=== PATIENT | male | born 1940 | race Caucasian/White ===

== ENCOUNTER 2020-08-23 09:42 | Outpatient (CLI) | payer MEDICARE, OTHER, SELFPAY ==
--- NOTE | ~2020-08-23 | US_ITS ---
US right upper quadrant INDICATION: History of cirrhosis. PROCEDURE: Realtime right upper abdominal ultrasound. COMPARISON: No prior studies for comparison. FINDINGS: The pancreas is normal without focal mass or pancreatic ductal dilation. Liver echotexture is heterogeneous and coarse with mild intrahepatic biliary dilatation. Nodular liver surface. There is normal directional flow in the portal vein. There is a gallbladder polyp with comet tail artifact. Polyp measures 4 mm. No gallstones or gallblad stephanie wall thickening. Common bile duct measures 3 mm. No sonographic Meredith's sign. IMPRESSION: 1: Cirrhosis. 2: 4 mm gallbladder polyp with comet tail artifact. Reviewed, dictated and finalized at location B.
== END 2020-08-23 09:43 | disposition home or self-care (01) ==
DX: K74.60 Unspecified cirrhosis of liver (principal); K82.4 Cholesterolosis of gallbladder
CPT/HCPCS: 76705

== ENCOUNTER 2022-06-24 22:32 | Inpatient (IN) | payer OTHER, SELFPAY ==
--- NOTE | ~2022-06-24 | CT_ITS ---
EXAMINATION: CT abdomen pelvis w con DATE: 06/25/2022 01:06 INDICATION: Nausea and diarrhea. Plaque stools. TECHNIQUE: Computed tomography (CT) of the abdomen and pelvis was performed with 100 mL Omnipaque-300 intravenous contrast. Automated exposure control and iterative reconstruction technique were employe d. The dose-length product was 789.52 mGy-cm. COMPARISON: None FINDINGS: Mild atelectasis/scarring at the lingula. Small calcified nodule in the left lower lobe and calcified paraesophageal lymph nodes consistent with old granulomatous disease. Heart size is normal. Atherosc lerotic coronary artery calcification. Aortic valve calcification. No pericardial effusion. Small sli ding-type hiatal hernia. Shrunken nodular cirrhotic liver. Subcentimeter low-attenuation likely cyst or hemangioma at segment 2 of the liver. Gallbladder, spleen with a couple small splenules, pancreas, bilateral adrenal glands and right kidney are normal. Subcentimeter low-attenuation left renal cyst. Infrarenal aortic stent graft extending into the bilateral common iliac arteries. Bladder is normal. Prostatomegaly. There is moderate scattered colonic diverticulosis without adjacent inflammatory change to suggest diverticul itis. Stool is seen at the cecum and rectum with some intervening fluid in the colon consistent with provided history of diarrhea. A few diverticula are also seen along the distal ileum. No dilated sena l to suggest obstruction. Normal appendix. No free intraperitoneal gas or fluid. No pathologically en larged abdominal or pelvic lymphadenopathy. Lumbar dextroscoliosis with severe spondylosis. IMPRESSION: 1. No acute intra-abdominal/pelvic process. 2. Cirrhosis. 3. Moderate diverticulosis. 4. Small sliding-type hiatal hernia. 5. Prostatomegaly. Reviewed, dictated and finalized at location A.
--- NOTE | ~2022-06-24 | NM_ITS ---
EXAMINATION: NM GI bleeding DATE: 06/27/2022 10:40 INDICATION: Gastrointestinal bleed with melena TECHNIQUE: 27.5 mCi Tc 99m in vitro labeled red cells administered intravenously. Scintigraphic imag es of the abdomen were obtained through 1 hour. FINDINGS: No pattern of abnormal activity is seen in the abdomen or pelvis to suggest gastrointestina l hemorrhage. IMPRESSION: 1. No scintigraphic evidence for active gastrointestinal bleeding. Reviewed, dictated and finalized at location A.
[2022-06-24 22:38] VITALS: BP 160/80; PULSE 84; RESP 18; TEMP 36.5; O2SAT 98
[2022-06-24 22:55] LABS: Basophils Absolute Auto 0.1 K/mm3 (0.0-0.1); Basophils Percent Auto 0.7 % (0.2-1.2); Eosinophils Absolute Auto 0.2 K/mm3 (0-0.3); Eosinophils Percent Auto 1.9 % (0-4.4); Hematocrit 39.2 % (42.0-52.0); Hemoglobin 12.8 g/dL (14.0-18.0); Immature Granulocyte Absolute 0.02 K/mm3 (0.00-0.031); Immature Granulocyte Percent A 0.2 % (0-0.5); Lymphocytes Absolute Auto 1.89 K/mm3 (0.9-3.2); Lymphocytes Percent Auto 21.4 % (18.3-44.2); Mean Corpuscular HGB Conc 32.7 g/dl (32-36); Mean Corpuscular Hemoglobin 31.7 pg (26-34); Mean Platelet Volume 11.3 fl (7.4-10.4); Monocytes Absolute Auto 0.8 K/mm3 (0.1-0.6); Monocytes Percent Auto 8.7 % (2.6-8.5); Neutrophils Absolute Auto 5.9 K/mm3 (1.3-6.7); Neutrophils Percent Auto 67.1 % (45.5-73.1); Platelet Count Result 206 k/mm3 (150-375); Red Blood Count 4.04 M/mm3 (4.6-6.20); Red Cell Distribution Width 13.2 % (11.5-14.5); White Blood Count 8.8 K/mm3 (4.5-10.0)
[2022-06-24 23:04] LABS: Alanine Aminotransferase 23 U/L (6-50); Albumin Level 4.1 g/dL (3.5-5.1); Alkaline Phosphatase 71 U/L (38-126); Anion Gap 12 mmol/L (8-16); Aspartate Amino Transferase 35 U/L (17-59); Bilirubin,Total 0.4 mg/dL (0.2-1.3); Blood Urea Nitrogen 27 mg/dL (9-20); Calcium 8.8 mg/dL (8.4-10.2); Carbon Dioxide 27 mmol/L (22-30); Chloride 101 mmol/L (98-107); Estimated CRCL calculation 36 ml/min; Estimated Glomerular Filt Rate 48; Glucose 133 mg/dL (65-110); Potassium 3.6 mmol/L (3.4-5.0); Sodium 140 mmol/L (137-145)
[2022-06-24 23:06] LABS: INR 1.1; Prothrombin Time 13.7 Seconds (11.1-14.7)
[2022-06-24 23:07] LABS: Partial Thromboplastin Time 28.9 SECONDS (22.3-36.8)
--- NOTE | 2022-06-24 23:57 | ED.GIBLEED ---
HPI - GI Bleed General Chief complaint: GI Bleed Stated complaint: Diarrhea, dark stools Time Seen by Provider: 06/24/22 23:36 Source: patient and RN notes reviewed Mode of arrival: ambulatory Limitations: no limitations History of Present Illness HPI Narrative: This is an 82 year old male with history of hypertension and AAA s/p repair 2014 who presents for evaluation of bloody stools. Patient states on Saturday he felt like he had an upset stomach, and he had a bowel movement. He states when he looked the toilet bowl was red and his stool was dark . He has continued to have bloody bowel movements yesterday and today. He reports having bloody bowel movement just prior to coming to ER. He denies fever, chills, nausea, vomiting, abdominal pain, weakness or dizziness. He denies any coagulation. He states his last colonoscopy was several years ago. Related Data Home Medications Medication Instructions Recorded Confirmed diltiazem HCl 240 mg mg PO 06/24/22 capsule,extended release 24 hr pravastatin 20 mg tablet mg 06/24/22 06/24/22 triamterene 37.5 tablet 06/24/22 mg-hydrochlorothiazide 25 mg tablet ursodiol 500 mg tablet mg 06/24/22 Allergies Allergy/AdvReac Type Severity Reaction Status Date / Time No Known Allergies Allergy Unverified 06/24/22 23:39 Review of Systems Review of Systems: All systems reviewed & are unremarkable except as noted in HPI and below Constitutional: Constitutional: Denies chills, Denies fatigue and Denies fever(s) Cardiovascular: Cardiovascular: Denies chest pain and Denies radiating jaw, neck or arm pain Respiratory: Respiratory: Denies chest congestion and Denies cough Gastrointestinal: Gastrointestinal: Denies abdominal pain, Reports diarrhea, Denies nausea and Denies vomiting Genitourinary: Genitourinary: Denies hematuria [facility] Past Medical History Medical History (Updated 06/25/22 @ 03:42 by Jayne Marcos MD) AAA (abdominal aortic aneurysm) Hypertension Surgical History Surgical History (Updated 06/25/22 @ 00:08 by Jayne Marcos MD) H/O abdominal aortic aneurysm repair Social History Social History (Updated 06/25/22 @ 00:08 by Jayne Marcos MD) Smoking status: Never smoker Exam Const: General: no acute distress and alert Nutritional Appearance: well nourished Orientation/consciousness: patient oriented x3 HENMT: Head: normal to inspection Eyes: EOM: EOMs intact bilaterally Chest: Chest palpation & inspection: normal inspection of the chest Resp: Effort & Inspection: normal respiratory effort Auscultation: clear to auscultation bilaterally Cardio: Rate: regular rate Rhythm: regular rhythm Heart sounds: no murmurs GI: GI Palp: Yes Soft to palpation, No Tenderness to palpation present (GI), No Guarding due to palpation present (GI) and No Rigid due to palpation Auscultation: normal bowel sounds Rectal Exam: heme positive stool Skin: General skin exam: normal color Rashes: no rashes Neuro: General: patient oriented x3, moves all extremities and CN's II-XI intact bilaterally Extrem: General: normal to inspection Psych: Mental Status: mental status grossly normal Affect: normal affect Attitude: cooperative Course Reevaluation(s) Reevaluation #1: Dr. Ballard accepts patient to hospitalist service. I Discussed CT results. She recommends starting on antibiotics to cover colitis. PAtient and family understand that he will be admitted. Date: 06/25/22 Time: 02:30 Vital Signs Vital signs: Vital Signs Temperature 97.7 F 06/24/22 22:38 Pulse Rate 84 06/24/22 22:38 Respiratory Rate 18 06/24/22 22:38 Blood Pressure 160/80 H 06/24/22 22:38 Pulse Oximetry 98 06/24/22 22:38 Oxygen Delivery Room Air 06/24/22 22:38 Temperature 97.7 F 06/24/22 22:38 Pulse Rate 69 06/25/22 01:19 Respiratory Rate 18 06/25/22 01:19 Blood Pressure 127/60 06/25/22 01:19 Pulse Oximetry 100 06/25/22 01:19
[2022-06-25] VITALS (7 sets, daily range): BP systolic 122–152; BP diastolic 57–72; PULSE 67–97; RESP 16–20; TEMP 35.8–36.4; O2SAT 98–100; BMI 28.9
[2022-06-25] MEDS: SODIUM CHLORIDE 0.9% IV 1,000 ML 999 ML IV CONT (01:18)
[2022-06-25] MEDS: SODIUM CHLORIDE 0.9% IV 1,000 ML 75 ML IV CONT ×2 (04:15→18:00)
[2022-06-25 05:56] LABS: Hematocrit 34.7 % (42.0-52.0); Hemoglobin 11.2 g/dL (14.0-18.0)
[2022-06-25] MEDS: PANTOPRAZOLE SODIUM IV 40 MG VIAL IV PUSH ×2 (08:03→20:45)
[2022-06-25 09:24] LABS: Hematocrit 33.1 % (42.0-52.0); Hemoglobin 10.7 g/dL (14.0-18.0)
--- NOTE | 2022-06-25 09:30 | PM.IMHP ---
H&P: HPI History of Present Illness Date/Time: 06/25/22 09:30 Chief Complaint: Melena Narrative: Patient is an 82 year old male with a past medical history of HTN. Cirrhosis, HLD, afib who presented to the ED with complaints of blood stools for the last 2 days. He stated that he noticed some changes over the last few days prior to saturday however, he stated that it was not as big. He stated that he went to play golf yesterday, and after his game he had a very large BM that was purple and bring red. He stated that it was pretty significant amount, which is why he came to be checked out. He stated that since that he has been experiencing a lot of gas and dull abdominal pain. He denies dizziness, lightheadedness, weakness, or syncope. He denies any nausea or vomiting. He states that he is doing good on his feet. He denies having any pain or swelling. he then told me that he was having more episodes and when he does have a bowel movement that it is bloody. He also stated drinks of water and small things like medicines are also making have diarrhea as well. Abdominal CT does show enterocolitis. It also shows watery stool in the colon. H&H stable at this time 11.2/34.1. Renal function seems a little elevated however I do not have a baseline at this time. Vital signs remained stable at this time patient is being admitted to the hospital service under observation at this time. Review of Systems Review of Systems: All systems reviewed & are unremarkable except as noted in HPI and below PMFSH Past Medical History Medical History (Updated 06/25/22 @ 12:07 by DANI Tavarez) AAA (abdominal aortic aneurysm) Afib Cirrhosis Hyperlipidemia Hypertension Surgical History Surgical History (Updated 06/25/22 @ 00:08 by Jayne Marcos MD) H/O abdominal aortic aneurysm repair Family History Family History Mother Alzheimer disease Father CKD (chronic kidney disease) Cirrhosis Grandparent Acute myocardial infarction Black lung disease Social History Social History Social History: Patient lives with his daughter Andra who will be his surrogate. He has 1 dog which is a pulmonary Grace. He was however she which sounds like a bunch of issues happened that time. He wishes to be a full code at this time. 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 Gender identity (if verbalized by the patient): Male Sexual Orientation (if Verbalized by the Patient): Straight or Heterosexual Spiritual care concerns: No Agree to blood products: Yes Meds Home Medications and Allergies Home Medications Medication Instructions Recorded Confirmed Type diltiazem HCl 240 mg 240 mg PO DAILY 06/24/22 06/25/22 History capsule,extended release 24 hr pravastatin 20 mg tablet 20 mg PO DAILY 06/24/22 06/25/22 History triamterene 37.5 1 tablet PO DAILY 06/24/22 06/25/22 History mg-hydrochlorothiazide 25 mg tablet ursodiol 500 mg tablet 500 mg PO BID 06/24/22 06/25/22 History Allergies Allergy/AdvReac Type Severity Reaction Status Date / Time No Known Allergies Allergy Unverified 06/24/22 23:39 Vital Signs Vital Signs - 24 hr 06/24/22 22:38 06/25/22 01:19 06/25/22 03:38 Temperature 97.7 F Pulse Rate 84 69 67 Respiratory Rate 18 18 20 Blood Pressure 160/80 H 127/60 122/72 Pulse Oximetry 98 100 98 Oxygen Delivery Room Air 06/25/22 04:33 06/25/22 04:33 06/25/22 04:35 Temperature 97.6 F Pulse Rate 97 Respiratory Rate 16 Blood Pressure
--- NOTE | 2022-06-25 14:51 | WPDGICN ---
Assessment and Plan Assessment and plan (1) Hematochezia: Code(s): K92.1 - Melena Status: Acute Assessment and Plan: will assess with colonoscopy ? diverticular bleed, avm, etc no much of abdominal pain and he is comfortable (2) GI bleed: Code(s): K92.2 - Gastrointestinal hemorrhage, unspecified Status: Acute Assessment and Plan: monitor (3) Cirrhosis: Code(s): K74.60 - Unspecified cirrhosis of liver Status: Acute Assessment and Plan: ? etiology normal liver enzymes will get hepatitis panel (4) MARIELOS (acute kidney injury): Code(s): N17.9 - Acute kidney failure, unspecified Status: Acute Assessment and Plan: monitor, no old records to compare GI Consult Note Consult date/time: 06/25/22 14:51 Reason for consult: hematochezia HPI: Reji Alcala is a 82 year old male past medical history of HTN, cirrhosis, HLD, afib who came to the ED with new onset of blood stools for the last 2 days, also had lot of gas, dull abdominal pain with diarrhea. No fever or chills, no sick contact, no melena or nausea. Last colonoscopy ~ 8 years ago. Denies syncope or lightheadedness. CT scan reviewed and showed cirrhosis, diverticulosis, small hiatal hernia.?Hb 12 and down to 10, creatinine 1.4, liver enzymes normal. Review of Systems Review of Systems: All systems reviewed & are unremarkable except as noted in HPI and below Constitutional: Constitutional: Denies chills, Denies fatigue and Denies fever(s) Eyes: Eyes: Denies blurry vision ENT: Reports Normal hearing present Cardiovascular: Cardiovascular: Denies chest pain and Denies radiating jaw, neck or arm pain Respiratory: Respiratory: Denies chest congestion and Denies cough Gastrointestinal: Gastrointestinal: Denies abdominal pain, Reports diarrhea, Denies nausea and Denies vomiting Genitourinary: Genitourinary: Denies hematuria Musculoskeletal: Musculoskeletal: Denies back pain Integumentary/Breasts: Skin/Breast: Denies rash Neurologic: Denies Abnormal speech present [facility] Past Medical History Medical History (Updated 06/25/22 @ 12:07 by ELEAZAR TavarezN-C) AAA (abdominal aortic aneurysm) Afib Cirrhosis Hyperlipidemia Hypertension Surgical History Surgical History (Updated 06/25/22 @ 00:08 by Jayne Marcos MD) H/O abdominal aortic aneurysm repair Family History Family History Mother Alzheimer disease Father CKD (chronic kidney disease) Cirrhosis Grandparent Acute myocardial infarction Black lung disease Social History Social History Social History: Patient lives with his daughter Andra who will be his surrogate. He has 1 dog which is a pulmonary Grace. He was however she which sounds like a bunch of issues happened that time. He wishes to be a full code at this time. 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
[2022-06-25 15:22] LABS: Hematocrit 31.9 % (42.0-52.0); Hemoglobin 10.4 g/dL (14.0-18.0)
[2022-06-25] MEDS: BISACODYL 5 MG TABLET EC 20 MG PO (17:57)
[2022-06-25] MEDS: polyethylene glycoL 3350 238 GM BOTTLE PO (17:57)
[2022-06-25 21:06] LABS: Hematocrit 30.8 % (42.0-52.0)
[2022-06-26] VITALS (8 sets, daily range): BP systolic 95–156; BP diastolic 36–70; PULSE 70–85; RESP 1–24; TEMP 36.1–36.4; O2SAT 97–100
[2022-06-26 06:06] LABS: Basophils Percent Auto 0.4 % (0.2-1.2); Eosinophils Absolute Auto 0.1 K/mm3 (0-0.3); Eosinophils Percent Auto 0.7 % (0-4.4); Hematocrit 27.3 % (42.0-52.0); Hemoglobin 8.8 g/dL (14.0-18.0); Immature Granulocyte Absolute 0.03 K/mm3 (0.00-0.031); Immature Granulocyte Percent A 0.4 % (0-0.5); Lymphocytes Absolute Auto 1.37 K/mm3 (0.9-3.2); Lymphocytes Percent Auto 18.7 % (18.3-44.2); Mean Corpuscular HGB Conc 32.2 g/dl (32-36); Mean Corpuscular Hemoglobin 31.8 pg (26-34); Mean Corpuscular Volume 98.6 fl (80-100); Monocytes Absolute Auto 0.5 K/mm3 (0.1-0.6); Monocytes Percent Auto 6.9 % (2.6-8.5); Neutrophils Absolute Auto 5.4 K/mm3 (1.3-6.7); Neutrophils Percent Auto 72.9 % (45.5-73.1); Platelet Count Result 171 k/mm3 (150-375); Red Blood Count 2.77 M/mm3 (4.6-6.20); Red Cell Distribution Width 13.2 % (11.5-14.5); White Blood Count 7.3 K/mm3 (4.5-10.0)
[2022-06-26 06:21] LABS: Transferrin 137 mg/dL (206-381)
[2022-06-26 06:55] LABS: Hepatitis B Surface Antigen Negative (Negative)
[2022-06-26 07:01] LABS: HAV RESULT Negative (Negative); Hepatitis B Core IgM Result Negative (Negative)
[2022-06-26 07:12] LABS: Hepatitis C Virus Antibody Negative (Negative)
[2022-06-26 07:17] LABS: Alanine Aminotransferase 17 U/L (6-50); Albumin Level 2.9 g/dL (3.5-5.1); Alkaline Phosphatase 55 U/L (38-126); Anion Gap 5 mmol/L (8-16); Aspartate Amino Transferase 39 U/L (17-59); Bilirubin,Total 0.4 mg/dL (0.2-1.3); Blood Urea Nitrogen 12 mg/dL (9-20); Calcium 7.4 mg/dL (8.4-10.2); Carbon Dioxide 28 mmol/L (22-30); Chloride 107 mmol/L (98-107); Estimated CRCL calculation 50 ml/min; Estimated Glomerular Filt Rate > 60; Glucose 119 mg/dL (65-110); Magnesium 1.5 mg/dL (1.6-2.3); Potassium 3.3 mmol/L (3.4-5.0); Sodium 140 mmol/L (137-145)
[2022-06-26] MEDS: SODIUM CHLORIDE 0.9% IV 1,000 ML 75 ML IV CONT (08:20)
[2022-06-26] MEDS: PANTOPRAZOLE SODIUM IV 40 MG VIAL IV PUSH ×2 (08:22→20:21)
[2022-06-26] MEDS: LACTATED RINGERS 1,000 ML 150 ML IV CONT (08:45)
--- NOTE | 2022-06-26 09:08 | WPDANESEPPF ---
Anes - Initial Pre Proc Eval Procedure: Operation Date: 06/26/22 11:15 Proposed Procedures p Colonoscopy - Alexey Patricio MD Date/Time: 06/26/22 09:08 Surgeon: Meagan Ballard DO Pre Op Diagnosis: Bloody Stools, Anemia Patient Data Age: 82 Gender: M Height: 1.78 m Weight: 91.5 kg Last Vital Signs Temp 96.9 F L 06/26/22 08:40 Pulse 81 06/26/22 08:40 Resp 18 06/26/22 08:40 BP 156/68 H 06/26/22 08:40 Pulse Ox 100 06/26/22 08:40 O2 Del Method Room Air 06/26/22 08:40 Allergies Allergy/AdvReac Type Severity Reaction Status Date / Time No Known Allergies Allergy Verified 06/26/22 08:49 Home Medications Medication Instructions Recorded Confirmed Type diltiazem HCl 240 mg 240 mg PO DAILY 06/24/22 06/25/22 History capsule,extended release 24 hr pravastatin 20 mg tablet 20 mg PO DAILY 06/24/22 06/25/22 History triamterene 37.5 1 tablet PO DAILY 06/24/22 06/25/22 History mg-hydrochlorothiazide 25 mg tablet ursodiol 500 mg tablet 500 mg PO BID 06/24/22 06/25/22 History Laboratory Tests 06/25/22 06/25/22 06/25/22 09:14 15:08 20:55 WBC RBC Hgb 10.7 g/dL L g/dL 10.4 g/dL L g/dL 10.0 g/dL L g/dL (14.0-18.0) (14.0-18.0) (14.0-18.0) Hct 33.1 % L % 31.9 % L % 30.8 % L % (42.0-52.0) (42.0-52.0) (42.0-52.0) MCV MCH MCHC RDW Plt Count MPV Immature Gran % (Auto) Neut % (Auto) Lymph % (Auto) [place] % (Auto) Eos % (Auto) Baso % (Auto) Lymph # (Auto) [place] # (Auto) Eos # (Auto) Baso # (Auto) Abs Immat Gran (auto) Absolute Neuts (auto) Absolute Nucleated RBC Nucleated RBC % Sodium Potassium Chloride Carbon Dioxide Anion Gap BUN Creatinine Estim Creat Clear Calc Estimated GFR Glucose Calcium Magnesium Iron TIBC % Saturation Transferrin Ferritin Total Bilirubin AST ALT Alkaline Phosphatase Total Protein Albumin Vitamin B12 Folate Hepatitis A IgM Ab Hep Bs Antigen Hep B Core IgM Ab Hepatitis C Ab Screen 06/26/22 06/26/22 06/26/22 05:11 05:11 05:11 WBC 7.3 K/mm3 K/mm3 (4.5-10.0) RBC 2.77 M/mm3 L M/mm3 (4.6-6.20) Hgb 8.8 g/dL L g/dL (14.0-18.0) Hct 27.3 % L % (42.0-52.0) MCV 98.6 fl fl (80-100) MCH 31.8 pg pg (26-34) MCHC 32.2 g/dl g/dl (32-36) RDW 13.2 % % (11.5-14.5) Plt Count 171 k/mm3 k/mm3 (150-375) MPV 12.0 fl H fl (7.4-10.4) Immature Gran % (Auto) 0.4 % % (0-0.5) Neut % (Auto) 72.9 % % (45.5-73.1) Lymph % (Auto) 18.7 % % (18.3-44.2) [place] % (Auto) 6.9 % % (2.6-8.5) Eos % (Auto) 0.7 % % (0-4.4) Baso % (Auto) 0.4 % % (0.2-1.2) Lymph # (Auto) 1.37 K/mm3 K/mm3 (0.9-3.2) [place] # (Auto) 0.5 K/mm3 K/mm3 (0.1-0.6) Eos # (Auto) 0.1 K/mm3 K/mm3 (0-0.3) Baso # (Auto) 0.0 K/mm3 K/mm3 (0.0-0.1) Abs Immat Gran (auto) 0.03 K/mm3 K/mm3 (0.00-0.031) Absolute Neuts (auto) 5.4 K/mm3 K/mm3 (1.3-6.7) Absolute Nucleated RBC 0.0 K/mm3 K/mm3 (0.0-0.012) Nucleated RBC % 0.0 % % (0.0-0.2) Sodium 140 mmol/L mmol/L (137-145) Potassium 3.3 mmol/L L mmol/L (3.4-5.0) Chloride 107 mmol/L mmol/L (98-107) Carbon Dioxide 28 mmol/L mmol/L
--- NOTE | 2022-06-26 10:03 | SUR.OPER ---
EGD start 937 end 940, Colon start 947 end 1016.
[2022-06-26 10:57] LABS: Iron 28 ug/dL (49-181)
[2022-06-26 11:08] LABS: Percent Iron Saturation 13 % (20-50)
--- NOTE | 2022-06-26 12:40 | PM.IMPN ---
Progress Note: A&P Assessment and Plan (1) Hematochezia: Code(s): K92.1 - Melena Status: Acute Assessment and Plan: Complaints of melena for the last 2 days Describes dark stools with bright red blood Protonix 40mg IV BID H/H trending down, 8.8/27.3 continue Q6H H/H Anemia labs iron 28, TIBC 221, % sat 13, transferrin 137, Ferritin 44.20, B12 , Folate Start iron 324mg PO BID Trend labs Transfuse as indicated GI consult Low fiber diet EGD and Colonoscopy do not indicate any bleeding, however, the picture appear to have bloody like stool (2) Enterocolitis: Code(s): K52.9 - Noninfective gastroenteritis and colitis, unspecified Status: Acute Assessment and Plan: CT indicates colitis and esophagitis Zosyn started at this time WBC is normal 7.3 Blood cultures not obtained Continue antibiotics for now trend labs (3) Anemia: Code(s): D64.9 - Anemia, unspecified Status: Acute Assessment and Plan: H/H trending down currently 8.8/27.3 Transfuse if Hgb less than 7 Anemia labs iron 28, TIBC 221, % sat 13, transferrin 137, Ferritin 44.20, B12 , Folate GI consulted thank you for your help Supplement as indicated Looks to be acute blood loss anemia (4) GI bleed: Code(s): K92.2 - Gastrointestinal hemorrhage, unspecified Status: Acute Assessment and Plan: See above GI consulted (5) Hypertension: Code(s): I10 - Essential (primary) hypertension Status: Acute Assessment and Plan: Current BP is 129/70 Hold HCTZ and Triamterene due to renal function Trend BP Adjust therapy as indicated (6) Hyperlipidemia: Code(s): E78.5 - Hyperlipidemia, unspecified Status: Acute Assessment and Plan: Hold pravastatin while NPO (7) Cirrhosis: Code(s): K74.60 - Unspecified cirrhosis of liver Status: Acute Assessment and Plan: CT indicated cirrhosis Hold ursodiol while NPO Trend liver enzymes (8) MARIELOS (acute kidney injury): Code(s): N17.9 - Acute kidney failure, unspecified Status: Acute Assessment and Plan: BUN/Cr 12/1.00 Unknown baseline Continue to trend labs Trend urine output Could be from the acute blood loss. Time Spent With Patient Time with patient: Greater than 35 minutes Subjective Date/time seen: 06/26/22 1240 Interval history: 06/26/221239 Patient stated that he feels well. He denied having any further bleeding. He denies any chest pain, shortness of breath, nausea, vomiting, diarrhea, constipation, weakness or fatigue. He is ready to go but not convinced that the bleeding has stopped. Looking at the colonoscopy the fluid looks to be a blood type of fluid. Put a call out to general surgery to review the pictures from the colonoscopy. 06/25/22? 09:30 Patient is an 82 year old male with a past medical history of HTN. Cirrhosis, HLD, afib who presented to the ED with complaints of blood stools for the last 2 days.? He stated that he noticed some changes over the last few days prior to saturday however, he stated that it was not as big.? He stated that he went to play golf yesterday, and after his game he had a very large BM that was purple and bring red.? He stated that it was pretty significant amount, which is why he came to be checked out.? He stated that since that he has been experiencing a lot of gas and dull abdominal pain.? He denies dizziness, lightheadedness, weakness, or syncope.? ? He denies any nausea or vomiting.? He states that he is doing good on his feet.? He denies having any pain or swelling. he then told me that he was having more episodes and when he does have a bowel movement that it is bloody.? He also stated drinks of water and small things like medicines are also making have diarrhea as well.? Abdominal CT d
--- NOTE | 2022-06-26 12:40 | P.PNIM_ITS ---
Progress Note: A&P Assessment and Plan (1) Hematochezia: Code(s): K92.1 - Melena Status: Acute Assessment and Plan: * Complaints of melena for the last 2 days * Describes dark stools with bright red blood * Protonix 40mg IV BID * H/H trending down, 8.8/27.3 * continue Q6H H/H * Anemia labs iron 28, TIBC 221, % sat 13, transferrin 137, Ferritin 44.20, B12 , Folate * Start iron 324mg PO BID * Trend labs * Transfuse as indicated * GI consult * Low fiber diet * EGD and Colonoscopy do not indicate any bleeding, however, the picture appear to have bloody like stool (2) Enterocolitis: Code(s): K52.9 - Noninfective gastroenteritis and colitis, unspecified Status: Acute Assessment and Plan: * CT indicates colitis and esophagitis * Zosyn started at this time * WBC is normal 7.3 * Blood cultures not obtained * Continue antibiotics for now * trend labs (3) Anemia: Code(s): D64.9 - Anemia, unspecified Status: Acute Assessment and Plan: * H/H trending down currently 8.8/27.3 * Transfuse if Hgb less than 7 * Anemia labs iron 28, TIBC 221, % sat 13, transferrin 137, Ferritin 44.20, B12 , Folate * GI consulted thank you for your help * Supplement as indicated * Looks to be acute blood loss anemia (4) GI bleed: Code(s): K92.2 - Gastrointestinal hemorrhage, unspecified Status: Acute Assessment and Plan: * See above * GI consulted (5) Hypertension: Code(s): I10 - Essential (primary) hypertension Status: Acute Assessment and Plan: * Current BP is 129/70 * Hold HCTZ and Triamterene due to renal function * Trend BP * Adjust therapy as indicated (6) Hyperlipidemia: Code(s): E78.5 - Hyperlipidemia, unspecified Status: Acute Assessment and Plan: * Hold pravastatin while NPO (7) Cirrhosis: Code(s): K74.60 - Unspecified cirrhosis of liver Status: Acute Assessment and Plan: * CT indicated cirrhosis * Hold ursodiol while NPO * Trend liver enzymes (8) MARIELOS (acute kidney injury): Code(s): N17.9 - Acute kidney failure, unspecified Status: Acute Assessment and Plan: * BUN/Cr 10/04.00 * Unknown baseline * Continue to trend labs * Trend urine output * Could be from the acute blood loss. Time Spent With Patient Time with patient: Greater than 35 minutes Subjective Date/time seen: 06/26/22 1240 Interval history: 06/26/221239 Patient stated that he feels well. He denied having any further bleeding. He denies any chest pain, shortness of breath, nausea, vomiting, diarrhea, constipation, weakness or fatigue. He is ready to go but not convinced that the bleeding has stopped. Looking at the colonoscopy the fluid looks to be a blood type of fluid. Put a call out to general surgery to review the pictures from the colonoscopy. 06/25/22? 09:30 Patient is an 82 year old male with a past medical history of HTN. Cirrhosis, HLD, afib who presented to the ED with complaints of blood stools for the last 2 days.? He stated that he noticed some changes over the last few days prior to saturday however, he stated that it was not as big.? He stated that he went to play golf yesterday, an
[2022-06-26] MEDS: MAGNESIUM SULF 4 GM/WATER100ML 4 GM/100 ML BAG IVPB (13:53)
[2022-06-26 16:08] LABS: Folic Acid > 20.0 ng/mL (2.76->20)
[2022-06-26 16:32] LABS: Hematocrit 24.8 % (42.0-52.0); Hemoglobin 7.9 g/dL (14.0-18.0)
[2022-06-26] MEDS: FERROUS SULFATE 324 MG TABLET PO (17:51)
[2022-06-26 21:45] LABS: Hematocrit 24.4 % (42.0-52.0); Hemoglobin 7.8 g/dL (14.0-18.0)
[2022-06-27] VITALS (7 sets, daily range): BP systolic 107–134; BP diastolic 41–59; PULSE 54–82; RESP 16–20; TEMP 36.2–36.9; O2SAT 91–100
[2022-06-27] MEDS: SODIUM CHLORIDE 0.9% IV 1,000 ML 75 ML IV CONT ×2 (01:13→21:29)
[2022-06-27 04:39] LABS: Hematocrit 23.4 % (42.0-52.0); Hemoglobin 7.5 g/dL (14.0-18.0)
[2022-06-27 07:07] LABS: Basophils Percent Auto 0.6 % (0.2-1.2); Eosinophils Absolute Auto 0.2 K/mm3 (0-0.3); Eosinophils Percent Auto 3.5 % (0-4.4); Hematocrit 23.5 % (42.0-52.0); Hemoglobin 7.6 g/dL (14.0-18.0); Immature Granulocyte Absolute 0.02 K/mm3 (0.00-0.031); Immature Granulocyte Percent A 0.3 % (0-0.5); Lymphocytes Absolute Auto 1.87 K/mm3 (0.9-3.2); Lymphocytes Percent Auto 28.5 % (18.3-44.2); Mean Corpuscular HGB Conc 32.3 g/dl (32-36); Mean Corpuscular Hemoglobin 31.9 pg (26-34); Mean Corpuscular Volume 98.7 fl (80-100); Mean Platelet Volume 12.2 fl (7.4-10.4); Monocytes Absolute Auto 0.6 K/mm3 (0.1-0.6); Monocytes Percent Auto 8.7 % (2.6-8.5); Neutrophils Absolute Auto 3.8 K/mm3 (1.3-6.7); Neutrophils Percent Auto 58.4 % (45.5-73.1); Platelet Count Result 178 k/mm3 (150-375); Red Blood Count 2.38 M/mm3 (4.6-6.20); Red Cell Distribution Width 13.5 % (11.5-14.5); White Blood Count 6.6 K/mm3 (4.5-10.0)
[2022-06-27 07:19] LABS: Alanine Aminotransferase 17 U/L (6-50); Albumin Level 2.7 g/dL (3.5-5.1); Alkaline Phosphatase 53 U/L (38-126); Anion Gap 4 mmol/L (8-16); Aspartate Amino Transferase 52 U/L (17-59); Bilirubin,Total 0.3 mg/dL (0.2-1.3); Blood Urea Nitrogen 8 mg/dL (9-20); Calcium 7.1 mg/dL (8.4-10.2); Carbon Dioxide 26 mmol/L (22-30); Chloride 109 mmol/L (98-107); Estimated CRCL calculation 50 ml/min; Estimated Glomerular Filt Rate > 60; Glucose 111 mg/dL (65-110); Potassium 3.1 mmol/L (3.4-5.0); Sodium 139 mmol/L (137-145)
--- NOTE | 2022-06-27 08:31 | WPDANESPN ---
Anes - Prog Note Post-Op Date/Time: 06/27/22 08:31 Cardiovascular status: normal Respiratory status: normal Airway patency: baseline Mental status: baseline Post-Op hydration status: normal Vital Signs: Last Vital Signs Temp 36.4 C 06/27/22 04:10 Pulse 82 06/27/22 04:10 Resp 20 06/27/22 04:10 BP 132/59 L 06/27/22 04:10 Pulse Ox 98 06/27/22 04:10 O2 Del Method Room Air 06/26/22 20:00 Pain Score (VAS): 1 I/O: Intake & Output 06/26/22 06/27/22 06/27/22 23:59 07:59 15:59 Intake Total 1665 240 Balance 1665 240 Laboratory Tests 06/27/22 04:34 06/27/22 04:33 06/26/22 06/26/22 06/26/22 05:11 05:11 16:12 WBC RBC Hgb 7.9 L Hct 24.8 L MCV MCH MCHC RDW Plt Count MPV Immature Gran % (Auto) Neut % (Auto) Lymph % (Auto) [place] % (Auto) Eos % (Auto) Baso % (Auto) Lymph # (Auto) [place] # (Auto) Eos # (Auto) Baso # (Auto) Abs Immat Gran (auto) Absolute Neuts (auto) Absolute Nucleated RBC Nucleated RBC % Sodium Potassium Chloride Carbon Dioxide Anion Gap BUN Creatinine Estim Creat Clear Calc Estimated GFR Glucose Calcium Iron 28 L TIBC 221 L % Saturation 13 L Ferritin 44.20 Total Bilirubin AST ALT Alkaline Phosphatase Total Protein Albumin Vitamin B12 287.0 Folate > 20.0 H 06/26/22 06/27/22 06/27/22 21:29 04:33 04:33 WBC 6.6 RBC 2.38 L Hgb 7.8 L 7.6 L Hct 24.4 L 23.5 L MCV 98.7 MCH 31.9 MCHC 32.3 RDW 13.5 Plt Count 178 MPV 12.2 H Immature Gran % (Auto) 0.3 Neut % (Auto) 58.4 Lymph % (Auto) 28.5 [place] % (Auto) 8.7 H Eos % (Auto) 3.5 Baso % (Auto) 0.6 Lymph # (Auto) 1.87 [place] # (Auto) 0.6 Eos # (Auto) 0.2 Baso # (Auto) 0.0 Abs Immat Gran (auto) 0.02 Absolute Neuts (auto) 3.8 Absolute Nucleated RBC 0.0 Nucleated RBC % 0.0 Sodium 139 Potassium 3.1 L Chloride 109 H Carbon Dioxide 26 Anion Gap 4 L BUN 8 L Creatinine 1.00 Estim Creat Clear Calc 50 Estimated GFR > 60 Glucose 111 H Calcium 7.1 L Iron TIBC % Saturation Ferritin Total Bilirubin 0.3 AST 52 ALT 17 Alkaline Phosphatase 53 Total Protein 5.0 L Albumin 2.7 L Vitamin B12 Folate 06/27/22 04:34 WBC RBC Hgb 7.5 L Hct 23.4 L MCV MCH MCHC RDW Plt Count MPV Immature Gran % (Auto) Neut % (Auto) Lymph % (Auto) [place] % (Auto) Eos % (Auto) Baso % (Auto) Lymph # (Auto) [place] # (Auto) Eos # (Auto) Baso # (Auto) Abs Immat Gran (auto) Absolute Neuts (auto) Absolute Nucleated RBC Nucleated RBC % Sodium Potassium Chloride Carbon Dioxide Anion Gap BUN Creatinine Estim Creat Clear Calc Estimated GFR Glucose Calcium Iron TIBC % Saturation Ferritin Total Bilirubin AST ALT Alkaline Phosphatase Total Protein Albumin Vitamin B12 Folate Patient Feedback: Patient satisfied with anesthetic care.
[2022-06-27] MEDS: PANTOPRAZOLE SODIUM IV 40 MG VIAL IV PUSH ×2 (10:16→20:24)
[2022-06-27] MEDS: FERROUS SULFATE 324 MG TABLET PO ×2 (10:17→16:46)
--- NOTE | 2022-06-27 11:15 | P.PNIM_ITS ---
Progress Note: A&P Assessment and Plan (1) Hematochezia: Code(s): K92.1 - Melena Status: Acute Assessment and Plan: * Complaints of melena for the last 2 days * Describes dark stools with bright red blood * Protonix 40mg IV BID * H/H trending down, 8.8/27.3 * continue Q6H H/H * Anemia labs iron 28, TIBC 221, % sat 13, transferrin 137, Ferritin 44.20, B12 , Folate * Start iron 324mg PO BID * Trend labs * Transfuse as indicated * GI consult * Low fiber diet * EGD and Colonoscopy do not indicate any bleeding, however, the picture appear to have bloody like stool * Talked with Dr. Gutierrez who stated that this is coming from a diverticulum * General surgery consulted * NM tag red blood cell did not show any active bleed (2) Enterocolitis: Code(s): K52.9 - Noninfective gastroenteritis and colitis, unspecified Status: Acute Assessment and Plan: * CT indicates colitis and esophagitis * Zosyn started at this time * WBC is normal 6.6 * Blood cultures not obtained * Continue antibiotics for now * trend labs (3) Anemia: Code(s): D64.9 - Anemia, unspecified Status: Acute Assessment and Plan: * H/H trending down currently 7.5/23.4 * Transfuse if Hgb less than 7 * Anemia labs? iron 28, TIBC 221, % sat 13, transferrin 137, Ferritin 44.20, B12 , Folate * GI consulted thank you for your help * Supplement as indicated * Looks to be acute blood loss anemia * Transfuse one unit of PRBC (4) GI bleed: Code(s): K92.2 - Gastrointestinal hemorrhage, unspecified Status: Acute Assessment and Plan: * See above * GI consulted * General surgery consulted (5) Hypertension: Code(s): I10 - Essential (primary) hypertension Status: Acute Assessment and Plan: * Current BP is 129/70 * Hold HCTZ and Triamterene due to renal function * Trend BP * Adjust therapy as indicated (6) Hyperlipidemia: Code(s): E78.5 - Hyperlipidemia, unspecified Status: Acute Assessment and Plan: * Hold pravastatin for now (7) Cirrhosis: Code(s): K74.60 - Unspecified cirrhosis of liver Status: Acute Assessment and Plan: * CT indicated cirrhosis * Hold ursodiol while NPO * Trend liver enzymes (8) MARIELOS (acute kidney injury): Code(s): N17.9 - Acute kidney failure, unspecified Status: Acute Assessment and Plan: * BUN/Cr 8/1.00 * Unknown baseline * Continue to trend labs * Trend urine output * Could be from the acute blood loss. Time Spent With Patient Time: Family conversation included update of care, plan of care Time with patient: Greater than 35 minutes Subjective Date/time seen: 06/27/22 11:15 Interval history: 06/27/22 1115 Patient was sitting in the chair. Patient does look a little pallor today. He denies any on comfort. He did denies any nausea, vomiting, diarrhea, constipation, weakness or fatigue. He did state that he had a couple of bowel movements that have been to him bloody. I asked him if I could see it the next time he did have a bowel movement is bright thang red blood. I talked to Dr. Gutierrez who say did that it is bleeding from a diverticulum any does not know which 1 because it
--- NOTE | 2022-06-27 11:15 | PM.IMPN ---
Progress Note: A&P Assessment and Plan (1) Hematochezia: Code(s): K92.1 - Melena Status: Acute Assessment and Plan: Complaints of melena for the last 2 days Describes dark stools with bright red blood Protonix 40mg IV BID H/H trending down, 8.8/27.3 continue Q6H H/H Anemia labs iron 28, TIBC 221, % sat 13, transferrin 137, Ferritin 44.20, B12 , Folate Start iron 324mg PO BID Trend labs Transfuse as indicated GI consult Low fiber diet EGD and Colonoscopy do not indicate any bleeding, however, the picture appear to have bloody like stool Talked with Dr. Gutierrez who stated that this is coming from a diverticulum General surgery consulted NM tag red blood cell did not show any active bleed (2) Enterocolitis: Code(s): K52.9 - Noninfective gastroenteritis and colitis, unspecified Status: Acute Assessment and Plan: CT indicates colitis and esophagitis Zosyn started at this time WBC is normal 6.6 Blood cultures not obtained Continue antibiotics for now trend labs (3) Anemia: Code(s): D64.9 - Anemia, unspecified Status: Acute Assessment and Plan: H/H trending down currently 7.5/23.4 Transfuse if Hgb less than 7 Anemia labs? iron 28, TIBC 221, % sat 13, transferrin 137, Ferritin 44.20, B12 , Folate GI consulted thank you for your help Supplement as indicated Looks to be acute blood loss anemia Transfuse one unit of PRBC (4) GI bleed: Code(s): K92.2 - Gastrointestinal hemorrhage, unspecified Status: Acute Assessment and Plan: See above GI consulted General surgery consulted (5) Hypertension: Code(s): I10 - Essential (primary) hypertension Status: Acute Assessment and Plan: Current BP is 129/70 Hold HCTZ and Triamterene due to renal function Trend BP Adjust therapy as indicated (6) Hyperlipidemia: Code(s): E78.5 - Hyperlipidemia, unspecified Status: Acute Assessment and Plan: Hold pravastatin for now (7) Cirrhosis: Code(s): K74.60 - Unspecified cirrhosis of liver Status: Acute Assessment and Plan: CT indicated cirrhosis Hold ursodiol while NPO Trend liver enzymes (8) MARIELOS (acute kidney injury): Code(s): N17.9 - Acute kidney failure, unspecified Status: Acute Assessment and Plan: BUN/Cr 8.00 Unknown baseline Continue to trend labs Trend urine output Could be from the acute blood loss. Time Spent With Patient Time: Family conversation included update of care, plan of care Time with patient: Greater than 35 minutes Subjective Date/time seen: 06/27/22 11:15 Interval history: 06/27/22 1115 Patient was sitting in the chair. Patient does look a little pallor today. He denies any on comfort. He did denies any nausea, vomiting, diarrhea, constipation, weakness or fatigue. He did state that he had a couple of bowel movements that have been to him bloody. I asked him if I could see it the next time he did have a bowel movement is bright thang red blood. I talked to Dr. Gutierrez who say did that it is bleeding from a diverticulum any does not know which 1 because it was bleeding at the time of the colonoscopy. He did state that the bleeding is coming from a diverticulum. H&H is trending down is currently 7.5. Will continue to trend H&H q.6. Transfuse 1 unit of packed red blood cells at this time. 06/26/22 1240 Patient stated that he feels well. He denied having any further bleeding. He denies any chest pain, shortness of breath, nausea, vomiting, diarrhea, constipation, weakness or fatigue. He is ready to go but not convinced that the bleeding has stopped. Looking at the colonoscopy the fluid looks to be a blood type of fluid. Put a call out to general surgery to review the pictures from the colonoscopy.
--- NOTE | 2022-06-27 11:17 | P.DS_ITS ---
DS: Admitting Diagnosis Discharge Date 06/27/22 1115 Admitting Diagnosis GI bleed and iron deficient anemia DS: Discharge Diagnosis Discharge Diagnosis (1) Hematochezia: Code(s): K92.1 - Melena Status: Acute Assessment and Plan: * Complaints of melena for the last 2 days * Describes dark stools with bright red blood * Protonix 40mg IV BID * H/H trending down,7.5/23.4 * continue Q6H H/H * Anemia labs iron 28, TIBC 221, % sat 13, transferrin 137, Ferritin 44.20, B12 , Folate * Start iron 324mg PO BID * Trend labs * Transfuse as indicated * GI consult * Low fiber diet * EGD and Colonoscopy do not indicate any bleeding, however, the picture appear to have bloody like stool (2) Enterocolitis: Code(s): K52.9 - Noninfective gastroenteritis and colitis, unspecified Status: Acute Assessment and Plan: * CT indicates colitis and esophagitis * Zosyn started at this time * WBC is normal 6.6 * Blood cultures not obtained * Continue antibiotics for now * trend labs (3) Anemia: Code(s): D64.9 - Anemia, unspecified Status: Acute Assessment and Plan: * H/H trending down currently 7.5/23.4 * Transfuse if Hgb less than 7 * Anemia labs iron 28, TIBC 221, % sat 13, transferrin 137, Ferritin 44.20, B12 , Folate * GI consulted thank you for your help * Supplement as indicated * Looks to be acute blood loss anemia * Probably a combination of acute blood loss and iron deficient anemia (4) GI bleed: Code(s): K92.2 - Gastrointestinal hemorrhage, unspecified Status: Acute Assessment and Plan: * See above * GI consulted * Seems to be resolved * NM tag red blood red was negative for an active bleed (5) Hypertension: Code(s): I10 - Essential (primary) hypertension Status: Acute Assessment and Plan: * Current BP is 132/59 * Hold HCTZ and Triamterene due to renal function * Trend BP * Adjust therapy as indicated (6) Hyperlipidemia: Code(s): E78.5 - Hyperlipidemia, unspecified Status: Acute Assessment and Plan: * Hold pravastatin while NPO (7) Cirrhosis: Code(s): K74.60 - Unspecified cirrhosis of liver Status: Acute Assessment and Plan: * CT indicated cirrhosis * Hold ursodiol while NPO * Trend liver enzymes (8) MARIELOS (acute kidney injury): Code(s): N17.9 - Acute kidney failure, unspecified Status: Acute Assessment and Plan: * BUN/Cr 8/1.00 * Unknown baseline * Continue to trend labs * Trend urine output * Could be from the acute blood loss. DS: Summary Hospital Course Hospital Course: Patient is an 82 year old with past medical history afib, HLD, HTN Time Spent with Patient Time attestation: Total time spent providing and/or coordinating discharge services: Exam Const: General: cooperative, healthy appearing, no acute distress, well developed, alert and awake Nutritional Appearance: well nourished Orientation/consciousness: patient oriented x3 Limitations: no limitations HENMT: Head: normal to inspection Ears: hearing grossly normal bilaterally General nose exam: Normal external nose present Mouth: Yes Normal oral and
--- NOTE | 2022-06-27 11:17 | PM.DS ---
DS: Admitting Diagnosis Discharge Date 06/27/22 1115 Admitting Diagnosis GI bleed and iron deficient anemia DS: Discharge Diagnosis Discharge Diagnosis (1) Hematochezia: Code(s): K92.1 - Melena Status: Acute Assessment and Plan: Complaints of melena for the last 2 days Describes dark stools with bright red blood Protonix 40mg IV BID H/H trending down,7.5/23.4 continue Q6H H/H Anemia labs iron 28, TIBC 221, % sat 13, transferrin 137, Ferritin 44.20, B12 , Folate Start iron 324mg PO BID Trend labs Transfuse as indicated GI consult Low fiber diet EGD and Colonoscopy do not indicate any bleeding, however, the picture appear to have bloody like stool (2) Enterocolitis: Code(s): K52.9 - Noninfective gastroenteritis and colitis, unspecified Status: Acute Assessment and Plan: CT indicates colitis and esophagitis Zosyn started at this time WBC is normal 6.6 Blood cultures not obtained Continue antibiotics for now trend labs (3) Anemia: Code(s): D64.9 - Anemia, unspecified Status: Acute Assessment and Plan: H/H trending down currently 7.5/23.4 Transfuse if Hgb less than 7 Anemia labs iron 28, TIBC 221, % sat 13, transferrin 137, Ferritin 44.20, B12 , Folate GI consulted thank you for your help Supplement as indicated Looks to be acute blood loss anemia Probably a combination of acute blood loss and iron deficient anemia (4) GI bleed: Code(s): K92.2 - Gastrointestinal hemorrhage, unspecified Status: Acute Assessment and Plan: See above GI consulted Seems to be resolved NM tag red blood red was negative for an active bleed (5) Hypertension: Code(s): I10 - Essential (primary) hypertension Status: Acute Assessment and Plan: Current BP is 132/59 Hold HCTZ and Triamterene due to renal function Trend BP Adjust therapy as indicated (6) Hyperlipidemia: Code(s): E78.5 - Hyperlipidemia, unspecified Status: Acute Assessment and Plan: Hold pravastatin while NPO (7) Cirrhosis: Code(s): K74.60 - Unspecified cirrhosis of liver Status: Acute Assessment and Plan: CT indicated cirrhosis Hold ursodiol while NPO Trend liver enzymes (8) MARIELOS (acute kidney injury): Code(s): N17.9 - Acute kidney failure, unspecified Status: Acute Assessment and Plan: BUN/Cr 8/1.00 Unknown baseline Continue to trend labs Trend urine output Could be from the acute blood loss. DS: Summary Hospital Course Hospital Course: Patient is an 82 year old with past medical history afib, HLD, HTN Time Spent with Patient Time attestation: Total time spent providing and/or coordinating discharge services: Exam Const: General: cooperative, healthy appearing, no acute distress, well developed, alert and awake Nutritional Appearance: well nourished Orientation/consciousness: patient oriented x3 Limitations: no limitations HENMT: Head: normal to inspection Ears: hearing grossly normal bilaterally General nose exam: Normal external nose present Mouth: Yes Normal oral and palatal mucosa present, Yes lip normal and Yes tongue normal Teeth and gingiva: abnormal tooth and associated gingiva and poor dentition Eyes: General: appearance normal, both eyes and all related structures Neck: Neck: normal visual inspection, full ROM, trachea midline and supple Chest: Chest palpation & inspection: normal inspection of the chest Resp: Effort & Inspection: normal respiratory effort and able to speak in complete sentences Auscultation: clear to auscultation bilaterally Cardio: Jugular venous distension: no JVD Rate: regular rate Rhythm: regular rhythm Heart sounds: S1 normal heart sound present and S2 normal heart sound present Peripheral pulses: Peripheral pul
[2022-06-27 12:57] LABS: Hematocrit 23.7 % (42.0-52.0); Hemoglobin 7.7 g/dL (14.0-18.0)
[2022-06-27] MEDS: SODIUM CHLORIDE 0.9% IV 250 ML 30 ML IV CONT (13:06)
--- NOTE | 2022-06-27 14:38 | WPDGIPROGNO ---
Progress Note: A&P Assessment and Plan (1) Diverticular hemorrhage: Code(s): K57.31 - Diverticulosis of large intestine without perforation or abscess with bleeding Status: Acute Assessment and Plan: GI nuclear medicine today did not find active bleeding this is cause of bleeding, colonoscopy yesterday did not find which one was the one bleeding supportive care monitor for more signs of bleeding consult surgery in case of more bleeding +/- interventional radiology (2) GI bleed: Code(s): K92.2 - Gastrointestinal hemorrhage, unspecified Status: Acute Assessment and Plan: monitor (3) Hematochezia: Code(s): K92.1 - Melena Status: Acute (4) Acute blood loss anemia: Code(s): D62 - Acute posthemorrhagic anemia Status: Acute Assessment and Plan: s/p blood transfusion monitor h/h (5) Cirrhosis: Code(s): K74.60 - Unspecified cirrhosis of liver Status: Acute Assessment and Plan: no varices patient was told years ago that had fatty liver, denies etoh intake hepatitis panel negative egd only mild erosive esophagitis, no signs of bleeding (6) Erosive esophagitis: Code(s): K22.10 - Ulcer of esophagus without bleeding Status: Acute Subjective Date/time seen: 06/27/22 14:38 Interval history: egd mild reflux esophagitis and colonoscopy found large amount of hematin with clots with several diverticula- this was the cause of hematochezia but could not identify which one was the culprit (not actively bleeding when I performed colonoscopy), today he passed another large bloody BM Review of Systems Review of Systems: All systems reviewed & are unremarkable except as noted in HPI and below Exam Const: General: comfortable and no acute distress HENMT: General nose exam: Normal nares present Eyes: General: appearance normal, both eyes and all related structures Neck: Neck: no JVD Resp: Auscultation: clear to auscultation bilaterally Cardio: Rate: regular rate Rhythm: regular rhythm GI: Inspection: non-distended GI Palp: Yes Soft to palpation Skin: General skin exam: normal color Neuro: General: gait normal Speech: normal speech Extrem: General: normal to inspection Psych: Mental Status: mental status grossly normal Objective Data Vital Signs Vital Signs: Vital Signs - 24 hr 06/26/22 20:05 06/26/22 20:00 06/27/22 04:10 Temperature 97.0 F L 97.6 F Pulse Rate 74 82 Respiratory Rate 18 20 Blood Pressure 121/61 132/59 L Pulse Oximetry 98 98 Oxygen Delivery Room Air 06/27/22 13:05 06/27/22 13:30 Temperature 98.0 F 97.1 F L Pulse Rate 77 74 Respiratory Rate 16 16 Blood Pressure 121/41 L 107/48 L Pulse Oximetry 96 97 Oxygen Delivery Intake/Output Intake/Output: Intake & Output 06/24/22 06/25/22 06/26/22 06/27/22 23:59 23:59 23:59 23:59 Intake Total 2150 2865 770 Balance 2150 2865 770 Meds/Results Medications: Active Medications Generic Name Dose Route Start Last Admin Trade Name Freq PRN Reason Stop Dose Admin Diltiazem HCl 240 mg 06/25/22 09:00 06/27/22 10:16 Diltiazem Hcl Cd 240 Mg Cap.Er.24h PO 240 mg DAILY BERNARDO Administration Ferrous Sulfate 324 mg 06/26/22 17:00 06/27/22 10:17 Ferrous Sulfate 324 Mg Tablet PO 324 mg BIDWM BERNARDO Administration Piperacillin Sod/Tazobactam Sod 2.25 gm in 50 mls @ 100 mls/hr 06/25/22 10:00 06/27/22 10:52 Zosyn 2.25 Gm/D5w 50 Ml IVPB Infused Q6H BERNARDO Infusion Sodium Chloride 1,000 mls @ 75 mls/hr 06/25/22 02:55 06/27/22 01:13 Normal Saline Iv IV CONT 75 mls/hr .[id number] BERNARDO Administration Sodium Chloride 250 mls @ 30 mls/hr 06/27/22 11:17 06/27/22 13:06 Normal Saline Iv IV CONT 06/27/22 19:36 30 mls/hr .[id number] STA Administration Ondansetron HCl 4 mg 06/25/22 02:55 Ondansetron Inj 4 Mg/2 Ml Vial IV PUSH Q4H PRN Nausea Pantoprazole Sodium 40 mg 06/25/22 09:00 0
--- NOTE | 2022-06-27 15:06 | PM.CNGS ---
Assessment and Plan Assessment and plan (1) Diverticular hemorrhage: Code(s): K57.31 - Diverticulosis of large intestine without perforation or abscess with bleeding Status: Acute Assessment and Plan: Presented with GI bleed and hemoglobin initially was 12.8. This has dropped as low as 7.5 earlier this morning. He is receiving 1 unit of PRBCs now. He underwent EGD and colonoscopy yesterday and it was felt that the source of bleeding is likely from right-sided diverticulosis in the cecum and ascending colon. No active bleeding seen on endoscopy. Nuclear med tagged RBC scan today showed no active bleeding. Hgb remains stable around 7.0 today. Stools are now appearing more clotted and he has only had 2 today. Currently, he is stable and we would recommend continuing to monitor his H/H every 6 hours and monitor his stools closely. If he continues to bleed, then we may need to consider transfer to a facility where IR is available. Will continue to follow closely. (2) Acute blood loss anemia: Code(s): D62 - Acute posthemorrhagic anemia Status: Acute Assessment and Plan: Continue to monitor serial H/H, transfuse as needed, see plan above. (3) Cirrhosis: Code(s): K74.60 - Unspecified cirrhosis of liver Status: Acute Assessment and Plan: Diagnosed over 10 years ago with unknown etiology. Taking Actigall prescribed by a specialist at [facility]. Hepatitis panel negative. INR normal. GI following. (4) Hypertension: Code(s): I10 - Essential (primary) hypertension Status: Acute (5) Hyperlipidemia: Code(s): E78.5 - Hyperlipidemia, unspecified Status: Acute Plan I have discussed the patient's case and plan of care with Dr. Fierro. History of Present Illness Consult details Consult date: 06/27/22 Reason for consult: other (Diverticular bleeding) Requesting physician: Andrzej Lao APN-C Narrative: This is an 82-year-old male with a history of hypertension, liver cirrhosis, AFib, and hyperlipidemia, who presented to the ED on 06/24/2022 with complaints of rectal bleeding. He reports having bloody stool since last Saturday, 5 days ago. He describes them as dark red stools. Denies a history of GI bleed in the past. CT scan of the abdomen and pelvis showed no acute intra-abdominal process, cirrhosis, moderate scattered diverticulosis, small sliding hiatal hernia, prostatomegaly. Labs showed hemoglobin of 12.8. He was admitted for GI bleed and serial H&H was monitored. His hemoglobin dropped to 7.9 yesterday and has been down as low as 7.5. He is receiving his first unit of blood today. GI was consulted and patient underwent EGD and colonoscopy yesterday. He was found to have esophagitis, and a small hiatal hernia on EGD. Colonoscopy showed multiple diverticula of different sizes present throughout the colon. There was stigmata of recent bleeding noted primarily on the right side, suspected to be in the cecum or ascending colon but could not find any active bleeding. Also noted was internal hemorrhoids and colon polyps which were biopsied. Our service has now been consulted for diverticular bleeding. The patient is seen on the medical floor with his daughter at the bedside. He reports having 2 clotted dark maroon stools today. Less than the amount of stools he was having overnight last night. He does report some dizziness upon standing. No other complaints at this time. Denies any history of diverticulitis. No previous abdominal surgeries. Review of Systems Review of Systems: All systems reviewed & are unremarkable except as noted in HPI and below PMFSH Past Medical History Medical History AAA (abdominal aortic aneurysm) Acute blood loss anemia Afib Cirrhosis Diverticular hemorrhage Erosive esophagitis Hyperlipidemia Hypertension Surgical History Surgical History (Reviewed 06/27/22 @ 15:09 by
[2022-06-27 17:55] LABS: Hematocrit 25.3 % (42.0-52.0); Hemoglobin 8.2 g/dL (14.0-18.0)
[2022-06-28] VITALS (8 sets, daily range): BP systolic 108–144; BP diastolic 43–56; PULSE 68–86; RESP 14–18; TEMP 36.4–37.1; O2SAT 98–100
[2022-06-28 00:53] LABS: Hematocrit 21.6 % (42.0-52.0)
[2022-06-28 02:09] LABS: Hemoglobin 6.9 g/dL (14.0-18.0)
[2022-06-28 05:50] LABS: Basophils Percent Auto 0.5 % (0.2-1.2); Eosinophils Absolute Auto 0.2 K/mm3 (0-0.3); Eosinophils Percent Auto 3.3 % (0-4.4); Immature Granulocyte Absolute 0.03 K/mm3 (0.00-0.031); Immature Granulocyte Percent A 0.5 % (0-0.5); Lymphocytes Absolute Auto 1.72 K/mm3 (0.9-3.2); Lymphocytes Percent Auto 25.8 % (18.3-44.2); Mean Corpuscular HGB Conc 32.2 g/dl (32-36); Mean Corpuscular Hemoglobin 31.2 pg (26-34); Mean Corpuscular Volume 96.7 fl (80-100); Mean Platelet Volume 11.6 fl (7.4-10.4); Monocytes Absolute Auto 0.6 K/mm3 (0.1-0.6); Monocytes Percent Auto 9.6 % (2.6-8.5); Neutrophils Percent Auto 60.3 % (45.5-73.1); Platelet Count Result 154 k/mm3 (150-375); Red Blood Count 2.15 M/mm3 (4.6-6.20); Red Cell Distribution Width 14.6 % (11.5-14.5); White Blood Count 6.7 K/mm3 (4.5-10.0)
[2022-06-28 05:56] LABS: Hemoglobin 6.7 g/dL (14.0-18.0)
[2022-06-28 05:58] LABS: Hematocrit 20.8 % (42.0-52.0)
[2022-06-28 06:06] LABS: Alanine Aminotransferase 13 U/L (6-50); Albumin Level 2.3 g/dL (3.5-5.1); Alkaline Phosphatase 45 U/L (38-126); Anion Gap 4 mmol/L (8-16); Aspartate Amino Transferase 22 U/L (17-59); Bilirubin,Total 0.4 mg/dL (0.2-1.3); Blood Urea Nitrogen 10 mg/dL (9-20); Calcium 7.1 mg/dL (8.4-10.2); Carbon Dioxide 25 mmol/L (22-30); Chloride 108 mmol/L (98-107); Estimated CRCL calculation 50 ml/min; Estimated Glomerular Filt Rate > 60; Glucose 106 mg/dL (65-110); Magnesium 1.8 mg/dL (1.6-2.3); Potassium 3.2 mmol/L (3.4-5.0); Sodium 137 mmol/L (137-145)
[2022-06-28] MEDS: SODIUM CHLORIDE 0.9% IV 250 ML 30 ML IV CONT (06:27)
[2022-06-28 08:41] LABS: Glucose Point of Care 111 mg/dl (65-105)
--- NOTE | 2022-06-28 08:45 | PM.IMPN ---
Progress Note: A&P Assessment and Plan (1) Diverticular hemorrhage: Code(s): K57.31 - Diverticulosis of large intestine without perforation or abscess with bleeding Status: Acute Assessment and Plan: Complaints of melena for the last 2 days Describes dark stools with bright red blood Protonix 40mg IV BID H/H trending down, 6.7/20.8 continue Q6H H/H Anemia labs iron 28, TIBC 221, % sat 13, transferrin 137, Ferritin 44.20, B12 , Folate Start iron 324mg PO BID Trend labs Transfuse as indicated One unit of PRBC transfused 04/27/22, and 2 more 04/28/22 GI consult General surgery consulted Low fiber diet EGD and Colonoscopy do not indicate any bleeding, however, the picture appear to have bloody like stool Talked with Dr. Gutierrez who stated that this is coming from a diverticulum General surgery consulted NM tag red blood cell did not show any active bleed (2) Enterocolitis: Code(s): K52.9 - Noninfective gastroenteritis and colitis, unspecified Status: Acute Assessment and Plan: CT indicates colitis and esophagitis Zosyn started at this time WBC is normal 6.7 Blood cultures not obtained Continue antibiotics for now trend labs (3) Anemia: Code(s): D64.9 - Anemia, unspecified Status: Acute Assessment and Plan: H/H trending down currently 6.7/20.8 Transfuse if Hgb less than 7 Anemia labs? iron 28, TIBC 221, % sat 13, transferrin 137, Ferritin 44.20, B12 , Folate GI consulted thank you for your help Supplement as indicated Looks to be acute blood loss anemia Transfuse one unit of PRBC 04/27/22, 2 more 04/28/22 (4) GI bleed: Code(s): K92.2 - Gastrointestinal hemorrhage, unspecified Status: Acute Assessment and Plan: See above GI consulted General surgery consulted (5) Hypertension: Code(s): I10 - Essential (primary) hypertension Status: Acute Assessment and Plan: Current BP is 108/43 Hold HCTZ and Triamterene due to renal function Trend BP Adjust therapy as indicated (6) Hyperlipidemia: Code(s): E78.5 - Hyperlipidemia, unspecified Status: Acute Assessment and Plan: Hold pravastatin for now (7) Cirrhosis: Code(s): K74.60 - Unspecified cirrhosis of liver Status: Acute Assessment and Plan: CT indicated cirrhosis Hold ursodiol while NPO Trend liver enzymes (8) MARIELOS (acute kidney injury): Code(s): N17.9 - Acute kidney failure, unspecified Status: Acute Assessment and Plan: BUN/Cr 10/1.00 Unknown baseline Continue to trend labs Trend urine output Could be from the acute blood loss. (9) Hypokalemia: Code(s): E87.6 - Hypokalemia Status: Acute Assessment and Plan: K has been running about 3.0 Current supplementation of 40mcg PO continue to trend Supplement as indicated Plan Called [facility] transfer center for transfer to a facility for further bleeding control. Talked with Quita from the transfer center who is going to reach out to the hospitalist team about admission. Transfer has been accepted at [facility] with Dr. Bond with admitting MD being Dr. Sosa Time Spent With Patient Time with patient: Greater than 35 minutes Subjective Date/time seen: 06/28/22 08:45 Interval history: 06/28/22 0845 Patient was sitting in the chair. Patient stated that he gets a little woozy and dizzy which is not normal for him. He did state that he has had 2 bowel movements so far this morning the 1st 1 he stated was dark and maroon more black. The other 1 he did leave and a commode. it was just thang red blood. He confirms that it is like urinating through his anus. He did say he sees a liver specialist over by [place]. Will call and try to put him on the list at [facility]. Talked to daughter about his curr
--- NOTE | 2022-06-28 08:45 | P.PNIM_ITS ---
Progress Note: A&P Assessment and Plan (1) Diverticular hemorrhage: Code(s): K57.31 - Diverticulosis of large intestine without perforation or abscess with bleeding Status: Acute Assessment and Plan: * Complaints of melena for the last 2 days * Describes dark stools with bright red blood * Protonix 40mg IV BID * H/H trending down, 6.7/20.8 * continue Q6H H/H * Anemia labs iron 28, TIBC 221, % sat 13, transferrin 137, Ferritin 44.20, B12 , Folate * Start iron 324mg PO BID * Trend labs * Transfuse as indicated * One unit of PRBC transfused 04/27/22, and 2 more 04/28/22 * GI consult * General surgery consulted * Low fiber diet * EGD and Colonoscopy do not indicate any bleeding, however, the picture appear to have bloody like stool * Talked with Dr. Gutierrez who stated that this is coming from a diverticulum * General surgery consulted * NM tag red blood cell did not show any active bleed (2) Enterocolitis: Code(s): K52.9 - Noninfective gastroenteritis and colitis, unspecified Status: Acute Assessment and Plan: * CT indicates colitis and esophagitis * Zosyn started at this time * WBC is normal 6.7 * Blood cultures not obtained * Continue antibiotics for now * trend labs (3) Anemia: Code(s): D64.9 - Anemia, unspecified Status: Acute Assessment and Plan: * H/H trending down currently 6.7/20.8 * Transfuse if Hgb less than 7 * Anemia labs? iron 28, TIBC 221, % sat 13, transferrin 137, Ferritin 44.20, B12 , Folate * GI consulted thank you for your help * Supplement as indicated * Looks to be acute blood loss anemia * Transfuse one unit of PRBC 04/27/22, 2 more 04/28/22 (4) GI bleed: Code(s): K92.2 - Gastrointestinal hemorrhage, unspecified Status: Acute Assessment and Plan: * See above * GI consulted * General surgery consulted (5) Hypertension: Code(s): I10 - Essential (primary) hypertension Status: Acute Assessment and Plan: * Current BP is 108/43 * Hold HCTZ and Triamterene due to renal function * Trend BP * Adjust therapy as indicated (6) Hyperlipidemia: Code(s): E78.5 - Hyperlipidemia, unspecified Status: Acute Assessment and Plan: * Hold pravastatin for now (7) Cirrhosis: Code(s): K74.60 - Unspecified cirrhosis of liver Status: Acute Assessment and Plan: * CT indicated cirrhosis * Hold ursodiol while NPO * Trend liver enzymes (8) MARIELOS (acute kidney injury): Code(s): N17.9 - Acute kidney failure, unspecified Status: Acute Assessment and Plan: * BUN/Cr 10/.00 * Unknown baseline * Continue to trend labs * Trend urine output * Could be from the acute blood loss. (9) Hypokalemia: Code(s): E87.6 - Hypokalemia Status: Acute Assessment and Plan: * K has been running about 3.0 * Current supplementation of 40mcg PO * continue to trend * Supplement as indicated Plan Called [facility] transfer center for transfer to a facility for further bleeding control. Talked with Quita from the transfer center who is going to reach out to the hospitalist team about admission. Transfer has been accepted at [place] with Dr. Ramon
[2022-06-28 09:38] LABS: INR 1.2; Prothrombin Time 14.5 Seconds (11.1-14.7)
[2022-06-28 09:39] LABS: Partial Thromboplastin Time 27.4 SECONDS (22.3-36.8)
[2022-06-28] MEDS: FERROUS SULFATE 324 MG TABLET PO (09:56)
[2022-06-28] MEDS: POTASSIUM CHLORIDE 20 MEQ TABLET 40 MEQ PO (09:56)
[2022-06-28] MEDS: PANTOPRAZOLE SODIUM IV 40 MG VIAL IV PUSH (09:56)
--- NOTE | 2022-06-28 11:00 | WPDGIPROGNO ---
Progress Note: A&P Assessment and Plan (1) Diverticular hemorrhage: Code(s): K57.31 - Diverticulosis of large intestine without perforation or abscess with bleeding Status: Acute Assessment and Plan: GI nuclear medicine today did not find active bleeding but today hb down to 6.7 surgery on board and agree with transfer to tertiary center for IR evaluation, may need coiling if more active bleeding. He already has a bed (2) GI bleed: Code(s): K92.2 - Gastrointestinal hemorrhage, unspecified Status: Acute Assessment and Plan: more bleeding today (3) Hematochezia: Code(s): K92.1 - Melena Status: Acute (4) Acute blood loss anemia: Code(s): D62 - Acute posthemorrhagic anemia Status: Acute Assessment and Plan: getting more PRBC transfer to tertiary hospital (5) Cirrhosis: Code(s): K74.60 - Unspecified cirrhosis of liver Status: Acute Assessment and Plan: no varices patient was told years ago that had fatty liver, denies etoh intake hepatitis panel negative egd only mild erosive esophagitis, no signs of bleeding (6) Erosive esophagitis: Code(s): K22.10 - Ulcer of esophagus without bleeding Status: Acute Subjective Date/time seen: 06/28/22 11:00 Interval history: had another bloody BM with clots, receiving another blood transfusion today because hb ~ 6.5 Review of Systems Review of Systems: All systems reviewed & are unremarkable except as noted in HPI and below Exam Const: General: comfortable and no acute distress HENMT: General nose exam: Normal nares present Eyes: General: appearance normal, both eyes and all related structures Neck: Neck: no JVD Resp: Auscultation: clear to auscultation bilaterally Cardio: Rate: regular rate Rhythm: regular rhythm GI: Inspection: non-distended GI Palp: Yes Soft to palpation Skin: General skin exam: normal color Neuro: General: gait normal Speech: normal speech Extrem: General: normal to inspection Psych: Mental Status: mental status grossly normal Objective Data Vital Signs Vital Signs: Vital Signs - 24 hr 06/27/22 16:15 06/27/22 19:36 06/27/22 20:32 Temperature 98.3 F 97.6 F Pulse Rate 66 54 L Respiratory Rate 16 16 Blood Pressure 115/47 L 118/53 L Pulse Oximetry 97 91 Oxygen Delivery Room Air 06/28/22 05:24 06/28/22 10:43 06/27/22 16:15 Temperature 98.1 F 97.7 F 98.3 F Pulse Rate 68 86 66 Respiratory Rate 14 15 16 Blood Pressure 108/43 L 109/51 L 115/47 L Pulse Oximetry 98 99 97 Oxygen Delivery 06/28/22 11:00 06/28/22 12:00 06/28/22 13:00 Temperature 97.9 F 97.6 F 97.6 F Pulse Rate 80 80 78 Respiratory Rate 16 15 16 Blood Pressure 115/50 L 115/56 L 132/53 L Pulse Oximetry 100 100 100 Oxygen Delivery 06/28/22 14:01 06/28/22 14:22 06/28/22 14:38 Temperature 98.7 F 98.7 F 97.5 F L Pulse Rate 70 70 70 Respiratory Rate 16 16 18 Blood Pressure 139/46 L 139/46 L 144/53 H Pulse Oximetry 100 100 100 Oxygen Delivery Intake/Output Intake/Output: Intake & Output 06/25/22 06/26/22 06/27/22 06/28/22 23:59 23:59 23:59 23:59 Intake Total 2150 2865 3050 1212 Balance 2150 2865 3050 1212 Meds/Results Radiology Results: ITS Impressions Abdomen/Pelvis CT 06/25/22 08:46 IMPRESSION: 1. No acute intra-abdominal/pelvic process. 2. Cirrhosis. 3. Moderate diverticulosis. 4. Small sliding-type hiatal hernia. 5. Prostatomegaly. GI Bleed Scan Nuclear Medicine 06/27/22 10:47 IMPRESSION: 1. No scintigraphic evidence for active gastrointestinal bleeding. Labs Labs: Laboratory Results - last 24 hr 06/24/22 06/27/22 06/28/22 22:44 17:50 00:34 WBC RBC Hgb 8.2 L 6.9 L* Hct 25.3 L 21.6 L MCV MCH MCHC RDW Plt Count MPV Immature Gran % (Auto) Neut % (Auto) Lymph % (Auto) [place] % (Auto) Eos % (Auto) Baso % (Auto) Lymph # (Auto) Mo
--- NOTE | 2022-06-28 12:14 | P.TS_ITS ---
Transfer Discharge Sum: Prov Provider Date of admission: 06/27/22 13:28 Primary care physician: Rodolfo Levine, MD Admitting clinician: Meagan Ballard DO Consults: 06/25/22 02:56 Consult to Physician Routine Comment: Spoke with PRODUCTION SUPPORT DEVELOPER, MD has been notified Consulting Provider: Alexey Patricio Reason for consultation: bloody stools Has provider been notified: Yes 06/27/22 Consult to Physician Routine Comment: Consulting Provider: Kee Thompson machine scallop cutter/MD group to consult: Talked to Dr. Vela who stated that he has multiple diverticula which is the source of the bleeding. He could not see which one it was. Reason for consultation: GI bleed Has provider been notified: Yes Receiving physician/facility: [facility] Dr. Omalley DS: Admitting Diagnosis Discharge Date 06/28/22 Admitting Diagnosis Acute lower GI bleed with hemorrhaging diverticula DS: Discharge Diagnosis Discharge Diagnosis (1) Diverticular hemorrhage: Code(s): K57.31 - Diverticulosis of large intestine without perforation or abscess with bleeding Status: Acute Assessment and Plan: * Complaints of melena for the last 2 days * Describes dark stools with bright red blood * Protonix 40mg IV BID * H/H trending down, 6.7/20.8 * continue Q6H H/H * Anemia labs iron 28, TIBC 221, % sat 13, transferrin 137, Ferritin 44.20, B12 , Folate * Start iron 324mg PO BID * Trend labs * Transfuse as indicated * One unit of PRBC transfused 04/27/22, and 2 more 04/28/22 * GI consult * General surgery consulted * Low fiber diet * EGD and Colonoscopy do not indicate any bleeding, however, the picture appear to have bloody like stool * Talked with Dr. Gutierrez who stated that this is coming from a diverticulum * General surgery consulted * NM tag red blood cell did not show any active bleed (2) Enterocolitis: Code(s): K52.9 - Noninfective gastroenteritis and colitis, unspecified Status: Acute Assessment and Plan: * CT indicates colitis and esophagitis * Zosyn started at this time * WBC is normal 6.7 * Blood cultures not obtained * Continue antibiotics for now * trend labs (3) Anemia: Code(s): D64.9 - Anemia, unspecified Status: Acute Assessment and Plan: * H/H trending down currently 6.7/20.8 * Transfuse if Hgb less than 7 * Anemia labs? iron 28, TIBC 221, % sat 13, transferrin 137, Ferritin 44.20, B12 , Folate * GI consulted thank you for your help * Supplement as indicated * Looks to be acute blood loss anemia * Transfuse one unit of PRBC 04/27/22, 2 more 04/28/22 (4) GI bleed: Code(s): K92.2 - Gastrointestinal hemorrhage, unspecified Status: Acute Assessment and Plan: * See above * GI consulted * General surgery consulted (5) Hypertension: Code(s): I10 - Essential (primary) hypertension Status: Acute Assessment and Plan: * Current BP is 108/43 * Hold HCTZ and Triamterene due to renal function * Trend BP * Adjust therapy as indicated (6) Hyperlipidemia: Code(s): E78.5 - Hyperlipidemia, unspecified Status: Acute Assessment and Plan: * Hold pravastatin for now
--- NOTE | 2022-06-28 12:14 | PM.TDS ---
Transfer Discharge Sum: Prov Provider Date of admission: 06/27/22 13:28 Primary care physician: Rodolfo Levine, Admitting clinician: Meagan Ballard DO Consults: 06/25/22 02:56 Consult to Physician Routine Comment: Spoke with PAST DUE ACCOUNTS CLERK, MD has been notified Consulting Provider: Alexey Patricio Reason for consultation: bloody stools Has provider been notified: Yes 06/27/22 Consult to Physician Routine Comment: Consulting Provider: Kee Thompson croze cutter helper/MD group to consult: Talked to Dr. Vela who stated that he has multiple diverticula which is the source of the bleeding. He could not see which one it was. Reason for consultation: GI bleed Has provider been notified: Yes Receiving physician/facility: [facility] Dr. Omalley DS: Admitting Diagnosis Discharge Date 06/28/22 Admitting Diagnosis Acute lower GI bleed with hemorrhaging diverticula DS: Discharge Diagnosis Discharge Diagnosis (1) Diverticular hemorrhage: Code(s): K57.31 - Diverticulosis of large intestine without perforation or abscess with bleeding Status: Acute Assessment and Plan: Complaints of melena for the last 2 days Describes dark stools with bright red blood Protonix 40mg IV BID H/H trending down, 6.7/20.8 continue Q6H H/H Anemia labs iron 28, TIBC 221, % sat 13, transferrin 137, Ferritin 44.20, B12 , Folate Start iron 324mg PO BID Trend labs Transfuse as indicated One unit of PRBC transfused 04/27/22, and 2 more 04/28/22 GI consult General surgery consulted Low fiber diet EGD and Colonoscopy do not indicate any bleeding, however, the picture appear to have bloody like stool Talked with Dr. Gutierrez who stated that this is coming from a diverticulum General surgery consulted NM tag red blood cell did not show any active bleed (2) Enterocolitis: Code(s): K52.9 - Noninfective gastroenteritis and colitis, unspecified Status: Acute Assessment and Plan: CT indicates colitis and esophagitis Zosyn started at this time WBC is normal 6.7 Blood cultures not obtained Continue antibiotics for now trend labs (3) Anemia: Code(s): D64.9 - Anemia, unspecified Status: Acute Assessment and Plan: H/H trending down currently 6.7/20.8 Transfuse if Hgb less than 7 Anemia labs? iron 28, TIBC 221, % sat 13, transferrin 137, Ferritin 44.20, B12 , Folate GI consulted thank you for your help Supplement as indicated Looks to be acute blood loss anemia Transfuse one unit of PRBC 04/27/22, 2 more 04/28/22 (4) GI bleed: Code(s): K92.2 - Gastrointestinal hemorrhage, unspecified Status: Acute Assessment and Plan: See above GI consulted General surgery consulted (5) Hypertension: Code(s): I10 - Essential (primary) hypertension Status: Acute Assessment and Plan: Current BP is 108/43 Hold HCTZ and Triamterene due to renal function Trend BP Adjust therapy as indicated (6) Hyperlipidemia: Code(s): E78.5 - Hyperlipidemia, unspecified Status: Acute Assessment and Plan: Hold pravastatin for now (7) Cirrhosis: Code(s): K74.60 - Unspecified cirrhosis of liver Status: Acute Assessment and Plan: CT indicated cirrhosis Hold ursodiol while NPO Trend liver enzymes (8) MARIELOS (acute kidney injury): Code(s): N17.9 - Acute kidney failure, unspecified Status: Acute Assessment and Plan: BUN/Cr 10/1.00 Unknown baseline Continue to trend labs Trend urine output Could be from the acute blood loss. (9) Hypokalemia: Code(s): E87.6 - Hypokalemia Status: Acute Assessment and Plan: K has been running about 3.0 Current supplementation of 40mcg PO continue to trend Supplement
--- NOTE | 2022-06-28 12:44 | PM.PNGS ---
Progress Note: A&P Assessment and Plan (1) Diverticular hemorrhage: Code(s): K57.31 - Diverticulosis of large intestine without perforation or abscess with bleeding Status: Acute Assessment and Plan: Continues to have bloody bowel movements and hemoglobin down to 6.7 this morning. Requiring another transfusion. Recommend transfer to a tertiary care facility where IR intervention would be available. Patient has been accepted to [facility] for transfer. (2) Acute blood loss anemia: Code(s): D62 - Acute posthemorrhagic anemia Status: Acute (3) Cirrhosis: Code(s): K74.60 - Unspecified cirrhosis of liver Status: Acute Plan I have discussed the patient's case and plan of care with Dr. Fierro. Subjective Subjective Date/Time Seen: 06/28/22 12:44 Patient reports: no new complaints and bowel movement Interval history: Patient continues to have bloody bowel movements with for overnight and this morning. He is receiving another unit of blood this morning. Denies any abdominal pain or other new complaints. Review of Systems Review of Systems: All systems reviewed & are unremarkable except as noted in HPI and below Exam Const: General: comfortable and no acute distress Orientation/consciousness: patient oriented x3 GI: Inspection: non-distended GI Palp: Yes Soft to palpation, No Tenderness to palpation present (GI) and No Guarding due to palpation present (GI) Auscultation: normal bowel sounds Psych: Mental Status: mental status grossly normal Insight: Good insight present (Psych) Objective Data Vital Signs Vital Signs: Vital Signs - 24 hr 06/27/22 13:05 06/27/22 13:30 06/27/22 14:30 Temperature 98.0 F 97.1 F L 98.5 F Pulse Rate 77 74 71 Respiratory Rate 16 16 16 Blood Pressure 121/41 L 107/48 L 134/56 L Pulse Oximetry 96 97 100 Oxygen Delivery 06/27/22 15:27 06/27/22 16:15 06/27/22 19:36 Temperature 98.5 F 98.3 F Pulse Rate 65 66 Respiratory Rate 16 16 Blood Pressure 124/51 L 115/47 L Pulse Oximetry 94 97 Oxygen Delivery Room Air 06/27/22 20:32 06/28/22 05:24 06/28/22 10:43 Temperature 97.6 F 98.1 F 97.7 F Pulse Rate 54 L 68 86 Respiratory Rate 16 14 15 Blood Pressure 118/53 L 108/43 L 109/51 L Pulse Oximetry 91 98 99 Oxygen Delivery 06/27/22 16:15 06/28/22 11:00 06/28/22 12:00 Temperature 98.3 F 97.9 F 97.6 F Pulse Rate 66 80 80 Respiratory Rate 16 16 15 Blood Pressure 115/47 L 115/50 L 115/56 L Pulse Oximetry 97 100 100 Oxygen Delivery Intake/Output Intake/Output: Intake & Output 06/25/22 06/26/22 06/27/22 06/28/22 23:59 23:59 23:59 23:59 Intake Total 2150 2865 3050 862 Balance 2150 2865 3050 862 Meds/Results Medications: Active Medications Generic Name Dose Route Start Last Admin Trade Name Freq PRN Reason Stop Dose Admin Diltiazem HCl 240 mg 06/25/22 09:00 06/28/22 09:56 Diltiazem Hcl Cd 240 Mg Cap.Er.24h PO 240 mg DAILY BERNARDO Administration Ferrous Sulfate 324 mg 06/26/22 17:00 06/28/22 09:56 Ferrous Sulfate 324 Mg Tablet PO 324 mg BIDWM BERNARDO Administration Piperacillin Sod/Tazobactam Sod 2.25 gm in 50 mls @ 100 mls/hr 06/25/22 10:00 06/28/22 10:30 Zosyn 2.25 Gm/D5w 50 Ml IVPB Infused Q6H BERNARDO Infusion Sodium Chloride 250 mls @ 30 mls/hr 06/28/22 06:10 06/28/22 06:27 Normal Saline Iv IV CONT 06/28/22 14:29 30 mls/hr .Q8H20M STA Administration Ondansetron HCl 4 mg 06/25/22 02:55 Ondansetron Inj 4 Mg/2 Ml Vial IV PUSH Q4H PRN Nausea Pantoprazole Sodium 40 mg 06/25/22 09:00 06/28/22 09:56 Pantoprazole Sodium Iv 40 Mg Vial IV PUSH 40 mg Q12H BERNARDO Administration Radiology Results: ITS Impressions Abdomen/Pelvis CT 06/25/22 08:46 IMPRESSION: 1. No acute intra-abdominal/pelvic process. 2. Cirrhosis. 3. Moderate diverticulosis. 4. Small sliding-type hiatal hernia. 5. Prostatomegaly. GI Bleed Scan Nuclear Medicine
[2022-06-28 13:37] LABS: EDCOVIDSCREEN Negative (Negative)
--- NOTE | 2022-06-28 14:46 | PC.NURSE ---
Patient transfered to [facility] by [facility], blood infusing, Report given to RN at Facility.
== END 2022-06-28 14:40 | disposition short-term general hospital (02) | DRG 378 ==
LOC: ANHED 06-25 00:32 → ANH2MED 06-25 03:16
PROVIDERS: Internal Medicine Gastroenterology; Admitting Provider Internal Medicine; Emergency Provider General Practice; PCP Internal Medicine; Visit Provider Nurse Practitioner
PROC: 0DJD8ZZ Inspection of Lower Intestinal Tract, Via Natural or Artificial Opening Endoscopic (ICD-10-PCS; CPT 45378; principal; 2022-06-26 11:15)
DX: K57.31 Diverticulosis of large intestine without perforation or abscess with bleeding (principal); D62 Acute posthemorrhagic anemia; N17.9 Acute kidney failure, unspecified; Z20.822 Contact with and (suspected) exposure to COVID-19; K52.9 Noninfective gastroenteritis and colitis, unspecified; K21.00 Gastro-esophageal reflux disease with esophagitis, without bleeding; K63.5 Polyp of colon; K44.9 Diaphragmatic hernia without obstruction or gangrene; K64.8 Other hemorrhoids; E78.5 Hyperlipidemia, unspecified; I10 Essential (primary) hypertension; K74.60 Unspecified cirrhosis of liver; E87.6 Hypokalemia; I48.91 Unspecified atrial fibrillation
CPT/HCPCS: 36415; 36430; 74177; 78278; 80053; 80074; 82607; 82728; 82746; 82948; 83540; 83550; 83735; 84466; 85014; 85018; 85025; 85610; 85730; 86850; 86900; 86901; 86920; 87426; 88305; 96361; 96375; 96376; 99285; A9270; A9560; C9113; C9803; G0378; J2543; J2704; J3475; J7030; J7050; J7120; P9016; Q9967